=== PATIENT | female | born 1990 ===

== ENCOUNTER 2016-12-08 10:50 | Emergency (ER) | payer MEDICAID, OTHER ==
[2016-12-08 11:08] VITALS: BMI 29.1
[2016-12-08 12:39] LABS: RBC URINE 7 /hpf (0-3); URINE BILIRUBIN NEGATIVE (NEGATIVE); URINE COLOR Yellow (YELLOW); URINE GLUCOSE (UA) NORMAL (Normal); URINE KETONE NEGATIVE (NEGATIVE); URINE LEUKOCYTE ESTERASE TRACE Leu/uL (Negative); URINE PROTEIN NEGATIVE (NEGATIVE); URINE UROBILINOGEN NORMAL mg/dL (0.2-1.0); WBC URINE 5 /hpf (0-5)
[2016-12-08 12:40] LABS: URINE BLOOD TRACE (NEGATIVE)
--- NOTE | 2016-12-08 13:09 | C.PDOC ---
History Of Present Illness 26 yo female come in for evaluation of B/L body sides pain intermittent for past few days. Pt is a localized, non-radiating and worse with movement, standing. Otherwise, pt denies recent illness, fever, chills, neck pain, CP, SOB , dyspnea, diaphoresis, palpitation, abd. pain, V/D, UTI sx. Ambulate to ED for evaluation, not n any apparent distress. Time Seen by Provider: 12/08/16 11:37 Chief Complaint (Nursing): Rib Injury History Per: Patient Onset/Duration Of Symptoms: Intermittent Episodes, Gradual Current Symptoms Are (Timing): Still Present Severity: Moderate Past Medical History Reviewed: Historical Data, Nursing Documentation, Vital Signs Vital Signs: Last Vital Signs Temp 98.1 F 12/08/16 11:08 Pulse 68 12/08/16 11:08 Resp 17 12/08/16 11:08 BP 113/77 12/08/16 11:08 Pulse Ox 99 12/08/16 11:08 - Medical History PMH: Asthma Family History: States: No Known Family Hx - Social History Hx Tobacco Use: No Hx Alcohol Use: Yes Hx Substance Use: No - Immunization History Hx Tetanus Toxoid Vaccination: No Hx Influenza Vaccination: No Hx Pneumococcal Vaccination: No Review Of Systems Except As Marked, All Systems Reviewed And Found Negative. Constitutional: Negative for: Fever, Chills ENT: Negative for: Throat Pain Respiratory: Negative for: Cough, Shortness of Breath, Wheezing Gastrointestinal: Negative for: Nausea, Vomiting, Abdominal Pain, Diarrhea Genitourinary: Negative for: Dysuria, Frequency, Incontinence Musculoskeletal: Positive for: Other (B/L trunk pain). Negative for: Neck Pain , Back Pain Skin: Negative for: Rash Neurological: Negative for: Weakness, Numbness, Altered Mental Status, Headache , Dizziness Physical Exam - Physical Exam Appears: Well, Non-toxic, No Acute Distress Skin: Normal Color, Warm, Dry, No Rash, No Ecchymosis Eye(s): bilateral: Normal Inspection Ear(s): Bilateral: Normal Nose: Normal, No Discharge Oral Mucosa: Moist Tongue: Normal Appearing Lips: Normal Appearing Throat: Normal, No Erythema, No Exudate, No Drooling Neck: Normal, Normal ROM, No Midline Cervical Tenderness, No Paracervical Tenderness, No Step Off Deformity, Supple Chest: Symmetrical, No Deformity, Tenderness (diffuse B/L body sides tenderness. No skin changes, no palpable deformity.) Cardiovascular: Rhythm Regular Respiratory: Normal Breath Sounds, No Stridor, No Wheezing Gastrointestinal/Abdominal: Normal Exam, Soft, No Tenderness, No Distention, No Guarding, No Rebound Back: Normal Inspection, No CVA Tenderness Extremity: Normal ROM, No Pedal Edema Neurological/Psych: Oriented x3, Normal Speech ED Course And Treatment O2 Sat by Pulse Oximetry: 99 Pulse Ox Interpretation: Normal Progress Note: On re-evaluation, pt is afebrile, hemodynamiclay stable. non- toxic. Ambulatory in ED with stable gait. PulsEOx 99% RA. ENT: no acute findings. neck: (-) meningal sign. ABd: benign, (-) localized tenderness. Back: (-) CVA tenderness. Neurologicaly intact. UA results review appears normal. Pt has clinical findings c/w likely muscularskeletal pain . Pt advised. ref. to F/u with PMD in 2-3 days for re-eavl. return if any new hcanges. Disposition Counseled Patient/Family Regarding: Studies Performed, Diagnosis, Need For Followup, Rx Given - Disposition Referrals: Shaik Herrera MD [Staff Provider] - Disposition: HOME/ ROUTINE Disposition Time: 12:30 Condition: STABLE Additional Instructions: Avoid heavy lifting, bending, etc. take pain medication as prescribed Follow up with PMD In 2-3 days for re-evaluation. Return to ED if nay worsening or new changes. Prescriptions: Methocarbamol [Robaxin] 500 mg PO TID #14 tab traMADol [Ultram] 50 mg PO TID #7 tab Instructions: Muscle Strain (ED) Forms: Work/School/Gym Excuse - Clinical Impression Clinical Impression: Muscle strain
[2016-12-08 13:31] VITALS: BP 108/68; PULSE 61; RESP 18; TEMP 97.8; O2SAT 98
== END 2016-12-08 13:32 | disposition home or self-care (01) ==
LOC: C.ER 10:50
DX: T14.8 Other injury of unspecified body region (principal); X58.XXXA Exposure to other specified factors, initial encounter

== ENCOUNTER 2017-03-14 02:11 | Emergency (ER) | payer MEDICAID ==
[2017-03-14 02:12] VITALS: BMI 29.1
[2017-03-14 03:06] LABS: HCG,QUALITATIVE URINE NEGATIVE (NEGATIVE); SQUAMOUS EPITHIAL 16 /hpf (0-5); URINE BACTERIA MANY (<OCC); URINE BILIRUBIN NEGATIVE (NEGATIVE); URINE BLOOD NEGATIVE (NEGATIVE); URINE CLARITY Hazy (Clear); URINE COLOR Yellow (YELLOW); URINE GLUCOSE (UA) NORMAL (Normal); URINE HYALINE CAST >20 /lpf (0-2); URINE LEUKOCYTE ESTERASE 3+ Leu/uL (Negative); URINE NITRATE POSITIVE (NEGATIVE); URINE PROTEIN 1+ mg/dL (NEGATIVE)
--- NOTE | 2017-03-14 03:33 | C.PDOC ---
History Of Present Illness 26 y/o female presents to the ED for evaluation of suprapubic abdominal pain, dysuria and hematuria which has been occurring intermittent episodes for around 2 weeks. Patient denies fever, chills, vomiting, recent travel. Time Seen by Provider: 03/14/17 02:59 Chief Complaint (Nursing): Abdominal Pain History Per: Patient History/Exam Limitations: no limitations Onset/Duration Of Symptoms: Intermittent Episodes (2 weeks ) Current Symptoms Are (Timing): Still Present Location Of Pain/Discomfort: Suprapubic Radiation Of Pain To:: None Quality Of Discomfort: "Pain" Associated Symptoms: Urinary Symptoms (+dysuria and hematuria ). denies: Fever , Chills, Vomiting Additional History Per: Patient Past Medical History Reviewed: Historical Data, Nursing Documentation, Vital Signs Vital Signs: Last Vital Signs Temp 97.8 F 03/14/17 04:20 Pulse 58 L 03/14/17 04:20 Resp 18 03/14/17 04:20 BP 100/64 03/14/17 04:20 Pulse Ox 100 03/21/17 05:35 - Medical History PMH: Asthma Surgical History: No Surg Hx Family History: States: Unknown Family Hx - Social History Hx Tobacco Use: No Hx Alcohol Use: Yes Hx Substance Use: No - Immunization History Hx Tetanus Toxoid Vaccination: No Hx Influenza Vaccination: No Hx Pneumococcal Vaccination: No Review Of Systems Constitutional: Negative for: Fever, Chills Gastrointestinal: Positive for: Abdominal Pain (suprapubic ). Negative for: Vomiting Genitourinary: Positive for: Dysuria, Hematuria Physical Exam - Physical Exam Appears: Non-toxic, No Acute Distress Skin: Normal Color, Warm, Dry Head: Atraumatic, Normacephalic Eye(s): bilateral: Normal Inspection Oral Mucosa: Moist Neck: Supple Chest: Symmetrical Cardiovascular: Rhythm Regular, No Murmur Respiratory: Normal Breath Sounds, No Rales, No Rhonchi, No Wheezing Gastrointestinal/Abdominal: Soft, Tenderness (minimal to mid-suprapubic region on palpation ), No Guarding, No Rebound Back: Normal Inspection, No CVA Tenderness, No Vertebral Tenderness Extremity: Normal ROM, Capillary Refill (less than 2 seconds ) Neurological/Psych: Normal Speech, Normal Cognition Gait: Steady ED Course And Treatment O2 Sat by Pulse Oximetry: 100 (on RA) Pulse Ox Interpretation: Normal Progress Note: UA ordered, results indicated urinary tract infection. Patient received Motrin PO and Macrobid PO. On reassessment, patient is resting comfortably, showing no signs of distress and reports an improvement in her symptoms. Patient is stable for discharge and is advised to follow up with her PMD within 1-2 days for further evaluation. Reassessment Condition: Improved Disposition Counseled Patient/Family Regarding: Diagnosis, Need For Followup, Rx Given - Disposition Disposition: HOME/ ROUTINE Disposition Time: 03:50 Condition: STABLE Additional Instructions: Increase PO fluids Take meds as directed Follow up with PMD Return to ER if fever, vomiting, back pain, severe abdominal pain or Prescriptions: Ibuprofen [Motrin] 600 mg PO Q6H #20 tab Nitrofurantoin Macrocrystals [Macrobid] 1 cap PO BID #13 cap Instructions: Urinary Tract Infection in Women (ED) - Clinical Impression Clinical Impression: Urinary tract infection - PA / MARKET PRESIDENT / Resident Statement MD/DO has reviewed & agrees with the documentation as recorded. - Scribe Statement The provider has reviewed the documentation as recorded by the Scribe (Brittney Corona) All medical record entries made by the Scribe were at my direction and personally dictated by me. I have reviewed the chart and agree that the record accurately reflects my personal performance of the history, physical exam, medical decision making, and the department course for this patient. I have also personally directed, reviewed, and agree with the discharge instructions and disposition.
[2017-03-14 04:21] VITALS: BP 100/64; PULSE 58; RESP 18; TEMP 97.8
[2017-03-21 05:21] VITALS: O2SAT 100
== END 2017-03-14 04:26 | disposition home or self-care (01) ==
LOC: C.ER 02:11
DX: N39.0 Urinary tract infection, site not specified (principal)

== ENCOUNTER 2018-03-05 14:46 | Emergency (ER) | payer MEDICAID ==
[2018-03-05 14:46] VITALS: BMI 29.1
[2018-03-05 14:53] VITALS: RESP 18
[2018-03-05 15:19] LABS: HCG,QUALITATIVE URINE NEGATIVE (NEGATIVE)
[2018-03-05 15:21] LABS: SQUAMOUS EPITHIAL 4 /hpf (0-5); URINE BACTERIA OCC (<OCC); URINE BILIRUBIN NEGATIVE (NEGATIVE); URINE BLOOD 1+ (NEGATIVE); URINE CLARITY Hazy (Clear); URINE COLOR Yellow (YELLOW); URINE GLUCOSE (UA) NORMAL (Normal); URINE LEUKOCYTE ESTERASE 2+ Leu/uL (Negative); URINE PROTEIN 2+ mg/dL (NEGATIVE); URINE UROBILINOGEN NORMAL mg/dL (0.2-1.0)
--- NOTE | 2018-03-05 16:08 | C.PDOC ---
History Of Present Illness 27 year old female presents to the ED for evaluation of suprapubic pain association with vaginal pressure which developed since yesterday. Patient also admits to experiencing some discomfort with urination. Patient admits her menstrual period is usually irregular. Pt denies fever, chills, recent illness, nausea, vomiting, vaginal discharge/bleeding, hematuria, back pain. Ambulate to Ed for evaluation, not in any apparent distress. Time Seen by Provider: 03/05/18 15:00 Chief Complaint (Nursing): Abdominal Pain History Per: Patient History/Exam Limitations: no limitations Onset/Duration Of Symptoms: Hrs Current Symptoms Are (Timing): Still Present Location Of Pain/Discomfort: Suprapubic Radiation Of Pain To:: None Quality Of Discomfort: Pressure, "Pain" Associated Symptoms: Urinary Symptoms (discomfort with urination ). denies: Fever, Chills, Nausea, Vomiting Additional History Per: Patient Abnormal Vaginal Bleeding: No Past Medical History Reviewed: Historical Data, Nursing Documentation, Vital Signs Vital Signs: Last Vital Signs Temp 98.2 F 03/05/18 16:22 Pulse 68 03/05/18 16:22 Resp 18 03/05/18 16:22 BP 127/84 03/05/18 16:22 Pulse Ox 99 03/05/18 16:22 - Medical History PMH: Asthma Surgical History: No Surg Hx Family History: States: Unknown Family Hx - Social History Hx Tobacco Use: No Hx Alcohol Use: Yes Hx Substance Use: No - Immunization History Hx Tetanus Toxoid Vaccination: No Hx Influenza Vaccination: No Hx Pneumococcal Vaccination: No Review Of Systems Constitutional: Negative for: Fever, Chills Gastrointestinal: Positive for: Abdominal Pain (suprapubic ). Negative for: Nausea, Vomiting Genitourinary: Negative for: Vaginal Discharge, Vaginal Bleeding Physical Exam - Physical Exam Appears: Well, Non-toxic, No Acute Distress Skin: Normal Color, Warm, Dry Head: Normacephalic Eye(s): bilateral: PERRL Nose: No Flaring Oral Mucosa: Moist, No Drooling Throat: No Erythema, No Drooling Neck: Trachea Midline, Supple Cardiovascular: Rhythm Regular, No Murmur Respiratory: No Decreased Breath Sounds, No Accessory Muscle Use, No Rales, No Rhonchi, No Stridor, No Wheezing Gastrointestinal/Abdominal: Soft, Tenderness (mild suprapubic), No Distention, No Guarding, No Rebound Back: No CVA Tenderness Pelvic: No Vaginal Bleeding, Vaginal Discharge (scant white disachrges.), No Cervical Motion Tenderness, No Adnexal Tenderness Extremity: Normal ROM, No Swelling Neurological/Psych: Oriented x3, Normal Speech, Normal Cognition ED Course And Treatment - Laboratory Results Urine POC: Negative O2 Sat by Pulse Oximetry: 98 (on RA) Pulse Ox Interpretation: Normal Progress Note: On re-eval, pt is afebrile, hemodynamicaly stable. NOn-toxic. Tolerate Po well in ED. ENT: no acute findings. neck: SUpple. Lungs: CTA B/L , BS equal B/L>. ABd: benign, (-) guarding, (-) rebound. back: (-) CVA tenderness. UA (+) WBC, RBC. Preg (-). Pt has clinical finidngs c/w UTI. Pt advised. ref. to f/u with PMD, BUSINESS ANALYST [employer] In 2-3 days for re-eavl. return if any new changes. Disposition Counseled Patient/Family Regarding: Studies Performed, Diagnosis, Need For Followup, Rx Given - Disposition [facility] [Outside] Disposition: HOME/ ROUTINE Disposition Time: 15:30 Condition: STABLE Additional Instructions: Encurage fluids Take medictaion as prescribed Follow up with BUSINESS ANALYST [employer] in 2-3 days for re-evaluation. return to ED if any worsening or new changes. Prescriptions: Nitrofurantoin Macrocrystals [Macrobid] 1 cap PO BID #14 cap Forms: [facility] (Mosotho), Work Excuse - Clinical Impression Clinical Impression: UTI (urinary tract infection) - PA / WELDING EQUIPMENT REPAIRER / Resident Statement MD/DO has reviewed & agrees with the documentation as recorded. - Scribe Statement The provider has reviewed the documentation as recorded by the Scribe (Brittney Corona) All medical record entries made by the Scribe were at my direction and personally dictated by me. I have reviewed the chart and agree that the record accurately reflects my personal performance of the history, physical exam, medical decision making, and the department course for this patient. I have also personally directed, reviewed, and agree with the discharge instructions and disposition.
[2018-03-05 16:24] VITALS: BP 127/84; PULSE 68; TEMP 98.2
[2018-03-05 16:41] VITALS: O2SAT 98
== END 2018-03-05 16:24 | disposition home or self-care (01) ==
LOC: C.ER 14:46
DX: N39.0 Urinary tract infection, site not specified (principal)

== ENCOUNTER 2018-11-02 13:23 | Emergency (ER) | payer OTHER ==
[2018-11-02 13:42] VITALS: BMI 38.2
[2018-11-02] MEDS ORDERED: Lactated Ringer's 1,000 ML IV SCH (15:00)
[2018-11-02 15:39] LABS: HEMOGLOBIN 11.5 g/dL (11.0-16.0); MEAN CELL VOLUME 90.4 fL (81.0-99.0); MEAN CORPUSCULAR HGB CONC 33.1 g/dL (33.0-37.0); MEAN PLATELET VOLUME 9.8 fL (7.2-11.7); RBC 3.83 Mil/uL (3.80-5.20); RED CELL DISTRIBUTION WIDTH 15.1 % (11.5-14.5); WHITE BLOOD COUNT 8.4 K/uL (4.8-10.8)
[2018-11-02 15:46] LABS: SQUAMOUS EPITHIAL 9 /hpf (0-5); URINE BACTERIA RARE (<OCC); URINE BILIRUBIN NEGATIVE (NEGATIVE); URINE BLOOD NEGATIVE (NEGATIVE); URINE CLARITY Hazy (Clear); URINE COLOR Yellow (YELLOW); URINE GLUCOSE (UA) NORMAL (Normal); URINE LEUKOCYTE ESTERASE 3+ Leu/uL (Negative); URINE PROTEIN 1+ mg/dL (NEGATIVE); URINE UROBILINOGEN NORMAL mg/dL (0.2-1.0)
[2018-11-02 16:02] LABS: ALB/GLOB RATIO 0.9 (1.0-2.1); ALBUMIN 3.5 g/dL (3.5-5.0); ALT/SGPT 22 U/L (9-52); AST/SGOT 65 U/L (14-36); BLOOD UREA NITROGEN 6 mg/dL (7-17); CALCIUM 8.7 mg/dl (8.6-10.4); GFR NON-AFRICAN AMERICAN > 60; LIPASE 65 U/L (23-300)
[2018-11-02 16:07] LABS: BARBITURATES, UR NEGATIVE (NEGATIVE); BENZODIAZEPINES, UR NEGATIVE (NEGATIVE); OPIATES, UR NEGATIVE (NEGATIVE); PHENCYCLIDINE, UR NEGATIVE (NEGATIVE)
[2018-11-02] MEDS ORDERED: Dextrose 5%/Lactated Ringer's 1,000 ML IV SCH (16:15)
[2018-11-02] MEDS ORDERED: guaiFENesin 100 mg/5 ml Syrup UD PO PRN (17:40)
[2018-11-02 18:01] LABS: SQUAMOUS EPITHIAL 1 /hpf (0-5); URINE BACTERIA RARE (<OCC); URINE BILIRUBIN NEGATIVE (NEGATIVE); URINE BLOOD NEGATIVE (NEGATIVE); URINE CLARITY Clear (Clear); URINE COLOR Yellow (YELLOW); URINE GLUCOSE (UA) NORMAL (Normal); URINE LEUKOCYTE ESTERASE NEG Leu/uL (Negative); URINE PROTEIN 1+ mg/dL (NEGATIVE); URINE UROBILINOGEN NORMAL mg/dL (0.2-1.0)
[2018-11-02 19:28] VITALS: TEMP 98.2; O2SAT 97
[2018-11-02] MEDS ORDERED: Albuterol-Ipratrop 3 mg / 0.5 (3 ml) UD IH STA (20:00)
--- NOTE | 2018-11-02 20:00 | C.PDOC ---
History Of Present Illness 28 year old female, 33 weeks , presents to the ED c/o congestion for the past 4 days. Patient was seen and cleared by Dr. Foster OB corporate communications specialist in the OB ED. Patient denies fever, chills, cough, rash, headache, SOB, CP, vaginal bleeding, vaginal discharge, nausea, vomit, diarrhea, abdominal pain. Chief Complaint (Nursing): Cough, Cold, Congestion History Per: Patient History/Exam Limitations: no limitations Onset/Duration Of Symptoms: Days (4) Current Symptoms Are (Timing): Still Present Location Of Pain: Sinus/es Sick Contacts (Context): None Associated Symptoms: Sinus Drainage, Nasal Congestion. denies: Fever, Chills Recent travel outside of the [place]: No Additional History Per: Patient Past Medical History Reviewed: Historical Data, Nursing Documentation, Vital Signs Vital Signs: Last Vital Signs Temp 98.2 F 11/02/18 19:24 Pulse 86 11/02/18 19:24 Resp 18 11/02/18 19:24 BP 163/100 H 11/02/18 19:24 Pulse Ox 97 11/02/18 19:24 - Medical History PMH: Asthma Surgical History: No Surg Hx Family History: States: Unknown Family Hx - Social History Hx Tobacco Use: No Hx Alcohol Use: Yes Hx Substance Use: No - Immunization History Hx Tetanus Toxoid Vaccination: No Hx Influenza Vaccination: No Hx Pneumococcal Vaccination: No Review Of Systems Constitutional: Negative for: Fever, Chills ENT: Positive for: Nose Discharge, Nose Congestion Cardiovascular: Negative for: Chest Pain, Palpitations Respiratory: Negative for: Cough, Shortness of Breath Gastrointestinal: Negative for: Nausea, Vomiting, Abdominal Pain Genitourinary: Negative for: Vaginal Discharge, Vaginal Bleeding Musculoskeletal: Negative for: Back Pain Skin: Negative for: Rash Neurological: Negative for: Headache Physical Exam - Physical Exam Appears: Non-toxic, No Acute Distress Skin: Warm, Dry Head: Normacephalic Eye(s): bilateral: Normal Inspection Nose: Other (congestes) Oral Mucosa: Moist Throat: No Erythema, No Exudate, No Drooling Neck: Supple Chest: Symmetrical Cardiovascular: Rhythm Regular Respiratory: No Rales, Rhonchi (scattered), No Wheezing Gastrointestinal/Abdominal: Soft, No Tenderness, No Guarding, No Rebound, Other (gravid) Back: Normal Inspection Extremity: Bilateral: Atraumatic, Normal Color And Temperature, Normal ROM Neurological/Psych: Oriented x3, Normal Speech, Normal Cognition Gait: Steady ED Course And Treatment - Laboratory Results Result Diagrams: 11/02/18 15:30 11/02/18 16:45 Lab Results: Total Bilirubin 0.5 mg/dL (0.2-1.3) 11/02/18 15:30 AST 65 U/L (14-36) H 11/02/18 15:30 ALT 22 U/L (9-52) 11/02/18 15:30 Alkaline Phosphatase 156 U/L (38-126) H 11/02/18 15:30 Total Protein 7.2 g/dL (6.3-8.3) 11/02/18 15:30 Albumin 3.5 g/dL (3.5-5.0) 11/02/18 15:30 Globulin 3.7 gm/dL (2.2-3.9) 11/02/18 15:30 Albumin/Globulin Ratio 0.9 (1.0-2.1) L 11/02/18 15:30 Lipase 65 U/L (23-300) 11/02/18 15:30 Urine Color Yellow (YELLOW) 11/02/18 17:49 Urine Clarity Clear (Clear) 11/02/18 17:49 Urine pH 6.0 (5.0-8.0) 11/02/18 17:49 Ur Specific [place] 1.009 (1.003-1.030) 11/02/18 17:49 Urine Protein 1+ mg/dL (NEGATIVE) H 11/02/18 17:49 Urine Glucose (UA) Normal mg/dL (Normal) 11/02/18 17:49 Urine Ketones Trace mg/dL (NEGATIVE) 11/02/18 17:49 Urine Blood Negative (NEGATIVE) 11/02/18 17:49 Urine Nitrate Negative (NEGATIVE) 11/02/18 17:49 Urine Bilirubin Negative (NEGATIVE) 11/02/18 17:49 Urine Urobilinogen Normal mg/dL (0.2-1.0) 11/02/18 17:49 Ur Leukocyte Esterase Neg Shefali/uL (Negative) 11/02/18 17:49 Urine WBC (Auto) 1 /hpf (0-5) 11/02/18 17:49 Urine RBC (Auto) < 1 /hpf (0-3) 11/02/18 17:49 Ur Squamous Epith Cells 1 /hpf (0-5) 11/02/18 17:49 Urine Bacteria Rare (<OCC) 11/02/18 17:49 O2 Sat by Pulse Oximetry: 97 (ON RA) Pulse Ox Interpretation: Normal Progress Note: Plan: - Duoneb. Patient seen and cleared by Dr. Foster OB corporate communications specialist prior to my evaluation Reevaluation Time: 20:23 Reassessment Condition: Improved Disposition Counseled Patient/Family Regarding: Studies Performed, Diagnosis, Need For Followup - Disposition Disposition: HOME/ ROUTINE Disposition Time: 20:00 Condition: FAIR Additional Instructions: Please return if symptoms recur Prescriptions: Albuterol/Ipratropium [Duoneb 3 MG/3 Ml-0.5 MG/3 Ml 3 Ml] 1 ea IH QID PRN #50 neb PRN Reason: Wheezing Instructions: Asthma, Adult (DC) Forms: [facility] (Korean) - Clinical Impression Clinical Impression: Asthma - Scribe Statement The provider has reviewed the documentation as recorded by the Scribe Yusef Alas All medical record entries made by the Scribe were at my direction and personally dictated by me. I have reviewed the chart and agree that the record accurately reflects my personal performance of the history, physical exam, medical decision making, and the department course for this patient. I have also personally directed, reviewed, and agree with the discharge instructions and disposition.
[2018-11-02] MEDS ORDERED: Albuterol-Ipratrop 3 mg / 0.5 (3 ml) UD ONE (20:06)
[2018-11-02 20:28] VITALS: BP 148/88; PULSE 92; RESP 16
== END 2018-11-02 20:28 | disposition home or self-care (01) ==
LOC: SUPCPDRO 13:23 → C.ER 13:23 → C.EROB 13:23 → C.ER 20:28
DX: O99.513 Diseases of the respiratory system complicating pregnancy, third trimester (principal); J45.909 Unspecified asthma, uncomplicated; Z3A.33 33 weeks gestation of pregnancy
CPT/HCPCS: 80053; 80324; 80345; 80346; 80349; 80353; 80358; 80361; 81001; 82947; 82948; 83690; 83789; 83992; 85027; 86658; 86695; 86696; 86747; 86762; 86777; 87086; 87804; 96360; 99284; J7120

== ENCOUNTER 2018-11-17 11:30 | Inpatient (IN) | payer OTHER ==
--- NOTE | 2018-11-17 13:04 | OBHP ---
Datetime: 11/17/2018 12:55 IP Adm Impression: , intrauterine ; Ruptured Membranes IP Chief Complaint Other: Gestational Diabetes Gestational Hypertension IP Admit Plan: Admit to unit; Initiate labor induction protocol Pelvic Type - PN: Adequate Extremities - PN: Normal Abdomen - PN: Normal Back - PN: Normal Breast - PN: Not Done Lungs - PN: Normal Heart - PN: Normal Thyroid - PN: Normal Neurologic - PN: Normal HEENT - PN: Normal General - PN: Normal Presentation-Admit: Vertex FHR - Baseline A Provider: 160's Amniotic Fluid Color, Provider: Clear Membranes, Provider: Ruptured Contraction Comments Provider: Ocassional Gestation - Est Wks by US: 36.4 Pool Provider: Positive Nitrazine Provider: Positive EGA AdmitDate IP: 36.4 Vital Signs Provider: Reviewed Vital Signs Provider Details: Midly elevated BP IP Chief Complaint: Suspected ruptured membranes; evaluation; Other NICHD Variability Prov Fetus A: Moderate 6-25bpm NICHD Accel Fetus A IP Provider: 10X10 FHR Category Provider Fetus A: Category I NICHD Decel Fetus A IP Provider: None Dilatation, Provider: 1-2 Effacement, Provider: 80 Station, Provider: -3 Genitourinary Exam: Normal DTRs - PN: Normal
[2018-11-17 13:11] VITALS: BMI 39.9
[2018-11-17] MEDS ORDERED: Lactated Ringer's 1,000 ML IV ONE (13:12)
[2018-11-17] MEDS ORDERED: Penicillin G 5 Million Unit Vial IVPB ONE ×2 (13:12→13:52)
[2018-11-17] MEDS: Lactated Ringer's 1,000 ML IV SCH (13:15)
[2018-11-17 14:09] LABS: BASO % 0.2 % (0.0-2.0); EOS # 0.1 K/uL (0.0-0.7); EOS % 1.3 % (0.0-4.0); HEMOGLOBIN 10.8 g/dL (11.0-16.0); LYMPH # 1.9 K/uL (1.0-4.3); LYMPH % 18.8 % (20.0-40.0); MEAN CORPUSCULAR HEMOGLOBIN 29.8 pg (27.0-31.0); MEAN CORPUSCULAR HGB CONC 33.1 g/dL (33.0-37.0); MEAN PLATELET VOLUME 10.9 fL (7.2-11.7); MONO # 0.9 K/uL (0.0-0.8); MONO % 8.6 % (0.0-10.0); NEUT # 7.3 K/uL (1.8-7.0); NEUT % 71.1 % (50.0-75.0); NRBC % 0.1 % (0.0-2.0); RBC 3.62 Mil/uL (3.80-5.20); RED CELL DISTRIBUTION WIDTH 15.2 % (11.5-14.5); WHITE BLOOD COUNT 10.3 K/uL (4.8-10.8)
[2018-11-17 14:17] LABS: INR 1.1; PROTHROMBIN TIME 11.9 SECONDS (9.7-12.2)
--- NOTE | 2018-11-17 14:23 | OBADHP ---
Datetime: 11/17/2018 12:55 IP Chief Complaint Other: Gestational Diabetes Gestational Hypertension Hx of ASthma +RPR Antenatally Admit Comment, IP Provider: 28 yo female G1 with an IUP at 36.4 weeks per 12 weeks US and presents w ith c/o of gush of clear fluid since 6 AM today without any pains and after it was repeated at about 8 AM, decided to come to the hospital. Midly elevated BP on Admission and Asymptomatic. Admits to lasha quated FM and denies VB, KRAUSE, BV or EP. Hx of elevated BP's throught course and was evaluated for PreE at 34 weeks here and at [facility] and both times she was sent home with precautions. + GDM/Diet controlled. PMHx Asthma and use Albuterol inhaler prn. Last used 2 weeks ago + RPR Antenatally PSHx Denies Meds PNV's. Albuterol inhaler prn Drug allergies: Morphine with rash Social HX: Denies Smoking, ETOH or Street Drug use A/P Near Term / 36.4 weeks SROM with clear fluid Gestational Diabetes/Diet Controlled, FS on admission 115 Gestational HTN/ Asymptomatic and PIH work up ordered Mild Dehdration on admission and IV fluid bolus given Uknown GBS and will give PCN G Prophylactically + RPR Antenattally and treated with PCN 4 million Units IM x 2 doses/ RPR repeated today NST Reactive. Ocassional contractions and will start Pitocin for augmentation of labor Anticipate Vaginal delivery Desires an Epidural when indicated Pelvic Type - PN: Adequate Extremities - PN: Normal Abdomen - PN: Normal Back - PN: Normal Breast - PN: Not Done Lungs - PN: Normal Heart - PN: Normal Thyroid - PN: Normal Neurologic - PN: Normal HEENT - PN: Normal General - PN: Normal Presentation-Admit: Vertex FHR - Baseline A Provider: 160's Amniotic Fluid Color, Provider: Clear Membranes, Provider: Ruptured Contraction Comments Provider: Ocassional Comments, ACOG Physical Exam: DTR's +2/4 bilaterally Gestation - Est Wks by US: 36.4 Pool Provider: Positive Nitrazine Provider: Positive IP Hx Assessment: The History has been Reviewed and is Current Vital Signs Provider: Reviewed Vital Signs Provider Details: Midly elevated BP IP Chief Complaint: Suspected ruptured membranes; evaluation; Other NICHD Variability Prov Fetus A: Moderate 6-25bpm NICHD Accel Fetus A IP Provider: 10X10 FHR Category Provider Fetus A: Category I NICHD Decel Fetus A IP Provider: None Dilatation, Provider: 1-2 Effacement, Provider: 80 Station, Provider: -3 Genitourinary Exam: Normal DTRs - PN: Abnormal EGA AdmitDate IP: 36.4 IP Adm Impression: , intrauterine ; Ruptured Membranes IP Admit Plan: Admit to unit; Initiate labor augmentation protocol
[2018-11-17 14:28] LABS: ALB/GLOB RATIO 0.9 (1.0-2.1); ALBUMIN 3.2 g/dL (3.5-5.0); ALT/SGPT 15 U/L (9-52); AST/SGOT 37 U/L (14-36); BLOOD UREA NITROGEN 11 mg/dL (7-17); CALCIUM 8.4 mg/dl (8.6-10.4); GFR NON-AFRICAN AMERICAN > 60; URIC ACID 5.3 mg/dL (2.2-7.5)
[2018-11-17] MEDS ORDERED: Oxytocin 30 UNIT in NS 500 ml 30 UNITS/500 ML BAG IV SCH (15:15)
[2018-11-17 15:25] LABS: SQUAMOUS EPITHIAL < 1 /hpf (0-5); URINE BILIRUBIN NEGATIVE (NEGATIVE); URINE BLOOD NEGATIVE (NEGATIVE); URINE CLARITY Clear (Clear); URINE COLOR Yellow (YELLOW); URINE GLUCOSE (UA) NORMAL (Normal); URINE LEUKOCYTE ESTERASE NEG Leu/uL (Negative); URINE PROTEIN 2+ mg/dL (NEGATIVE)
[2018-11-17] MEDS ORDERED: Magnesium Sulfate 2 GM in Dextrose 5% In Water 250 ML IVPB ONE (16:20)
[2018-11-17] MEDS ORDERED: Magnesium Sulfate 6 GM in Dextrose 5% In Water 250 ML IVPB ONE (16:23)
[2018-11-17] MEDS ORDERED: Magnesium Sulfate 20 gm 20 GM/500 ML BAG IV ONE (16:41)
[2018-11-17] MEDS ORDERED: Lactated Ringer's 1,000 ML IV SCH (16:45)
[2018-11-17 17:12] LABS: RAPID PLASMA REAGIN REACTIVE (NONREACTIVE)
--- NOTE | 2018-11-17 18:25 | OBPN ---
Datetime: 11/17/2018 15:40 IP Progress Impression Other: Gestational Diabetes IP Progress Impression: Reassuring heart rate; Reactive non-stress test; Rupture of membranes; Gest. HTN/PreEclampsia/Eclampsia IP Informed Consent Obtain: Vaginal Delivery IP Progress Plan: Continue present management; Augmentation; Anesthesia consult; Antibiotic therapy; Anticipate Vaginal Delivery Membranes, Provider: Ruptured Contraction Comments Provider: Irregular FHR - Baseline A Provider: 130 Gestation - Est Wks by US: 36.4 Presentation-Admit: Vertex IP Progress Note Comment: Pt labs resulted and reviewed and OK for the most part UA with 2+ proteinuria and Protein/Creat ration 3.1 3+ facial and abdominal edema noted with DTR's +3/4 Discussed with patient and her mother, present in her room the recommendation to start Magnesium S ulfate secondary to Preeclampsia and to prevent seizures. All of their questions were answered to their full satisfaction and orders were placed RPR positive and FTA ABs were ordered Will consult Infectious diseases at this time Pitocin was started for Augmentation of labor as well a PenK for unknown GBS Hope for a vaginal delivery Vital Signs Provider: Reviewed Vital Signs Provider Details: Diastolic BP's elevated to high 80's NICHD Accel Fetus A IP Provider: 10X10 FHR Category Provider Fetus A: Category I NICHD Variability Prov Fetus A: Moderate 6-25bpm NICHD Decel Fetus A IP Provider: None (Annotations: Data stored by CPN on behalf of user) Datetime: 11/17/2018 12:55 Pool Provider: Positive Nitrazine Provider: Positive Amniotic Fluid Color, Provider: Clear Dilatation, Provider: 1-2 Effacement, Provider: 80 Station, Provider: -3
[2018-11-17] MEDS ORDERED: Magnesium Sulfate 20 gm 20,000 MG/500 ML BAG IV ONE (18:31)
[2018-11-17] MEDS ORDERED: Fentanyl/Bupivacaine HCl 250 ML EPI ONE (19:05)
--- NOTE | 2018-11-17 20:03 | OBPN ---
Datetime: 11/17/2018 19:38 IP Progress Impression Other: Gestational Diabetes IP Progress Impression: Reactive non-stress test; Rupture of membranes; Gest. HTN/PreEclampsia/Eclam psia IP Informed Consent Obtain: Vaginal Delivery IP Procedures: Sterile Vag Exam; Epidural Placement IP Progress Plan: Continue present management; Augmentation; Antibiotic therapy Membranes, Provider: Ruptured Contraction Comments Provider: Still irregular FHR - Baseline A Provider: 140 Gestation - Est Wks by US: 36.4 Presentation-Admit: Vertex IP Progress Note Comment: Pt seen and examined with minimal progress in dilatation and effacement SHRUTI Valles was consulted and discussed case with her over the phone since she unable to come. She suggested to increase her PCN VK to 4 instead of 2.5 Q [address] Bashir aware of patient's condition and weirobbin request her presence at delivery FTA Ab's were sent out and pending Closer review of her PNC records revealed + RPR at 10 weeks and treated x 3 with Bhavin Pcn 2.4 mil lion units IM x 3 weekly doses at 11/12 weeks. Repeated RPR at 20 weeks and at 33+ weeks were Negativ e FHT's reassuring UC's still irregular with Pitocin at 6 mU/min and will continue increasing it BP's increasing at times and will probable start her on Labetolol po Pt states that her pain with contractions is 7/10 and requested an Epidural and Anesthesia aware a nd in progress Vital Signs Provider: Reviewed NICHD Accel Fetus A IP Provider: 10X10 FHR Category Provider Fetus A: Category I NICHD Variability Prov Fetus A: Moderate 6-25bpm Dilatation, Provider: 2+ Effacement, Provider: 90 Station, Provider: -3 NICHD Decel Fetus A IP Provider: None
[2018-11-17] MEDS: WATER IV SCH (22:02)
[2018-11-17] MEDS: DEXTROSE IV SCH (22:02)
[2018-11-17] MEDS: PENICILLIN POTASSIUM MU IV SCH (22:02)
[2018-11-18] MEDS ORDERED: Bupivacaine HCl 0.5% PF (10 ml) Inj ONE ×4 (00:01→10:23)
[2018-11-18] MEDS ORDERED: Lidocaine 2% MPF (5 ml) Inj ONE ×5 (00:02→11:49)
[2018-11-18] MEDS ORDERED: Fentanyl/Bupivacaine HCl 250 ML EPI ONE (00:30)
[2018-11-18] MEDS: PENICILLIN POTASSIUM MU IV SCH ×4 (01:40→13:30)
[2018-11-18] MEDS: WATER IV SCH ×4 (01:40→13:30)
[2018-11-18] MEDS: DEXTROSE IV SCH ×4 (01:40→13:30)
[2018-11-18] MEDS ORDERED: Magnesium Sulfate 20 gm 20,000 MG/500 ML BAG IV ONE ×2 (05:56→16:09)
[2018-11-18] MEDS: Lactated Ringer's 1,000 ML IV SCH (06:04)
[2018-11-18] MEDS ORDERED: NS IV ONE (07:41)
[2018-11-18] MEDS ORDERED: OXYTOCIN IV ONE (07:41)
--- NOTE | 2018-11-18 12:48 | OBPN ---
Datetime: 11/18/2018 10:20 Membranes, Provider: Ruptured Contraction Comments Provider: 2-3 FHR - Baseline A Provider: 140 Gestation - Est Wks by US: 36.5 Presentation-Admit: Vertex IP Progress Note Comment: Pt seen and examined Prolonged SROM, more than 30 hours C/O's of pain with contractions and Anesthesia had seen her many time for pain assessment Tracing reassuring BP's up to 140-150's/90's. Denies KRAUSE, BV or EP and Magnesium Sulfate running with last level 5.3. Last FS BS 91 Afebrile and no abdominal tenderness Cx's improved after changing her Pitocin bag Continue Present management and Hope for a vaginal delivery NICHD Variability Prov Fetus A: Moderate 6-25bpm NICHD Decel Fetus A IP Provider: None Datetime: 11/18/2018 07:30 IP Progress Impression Other: Gestational Diabetes IP Progress Impression: Reactive non-stress test; Rupture of membranes; Gest. HTN/PreEclampsia/Eclam psia IP Informed Consent Obtain: Vaginal Delivery IP Procedures: Sterile Vag Exam IP Progress Plan: Continue present management; Augmentation NICHD Accel Fetus A IP Provider: 100 Dilatation, Provider: 5 Effacement, Provider: 100 Station, Provider: -2
--- NOTE | 2018-11-18 13:03 | OBPN ---
Datetime: 11/18/2018 07:30 Membranes, Provider: Ruptured Contraction Comments Provider: 2-4 FHR - Baseline A Provider: 140 Gestation - Est Wks by US: 36.5 Presentation-Admit: Vertex IP Progress Note Comment: Pt seen and examined. No c/o's at this time Denies KRAUSE, BV or EP and admits to adequate FM BP's elevated on and off Magnesium Sulfate in place and Therapeutic levels verified Received several doses of Pen G [address] Means's recomendation to cover for + RPR and for unknown GBS Epidural working well and had required few boluses but patient comfortable SVE 5/100/-2 with large caput Pitocin at 20 mu/min with irregular contractions IUPC not working well per Nursing, and removed Will change the Pitocin bag and re-start at 10 and increase per protocol FS BS Q 6 hrs and WNL SROM for about 21 hours, Afebrile and No S_S of [place] Will continue with Augmentation of Labor and Hope for a vaginal delivery Discussed with patient the possibility of a C/S Will reexamined again in a couple of hours and decide then Pt verbalized understanding and all of her questions were answered to her full satisfaction. Stable and Satisfactory condition Rested over nite FHR Category Provider Fetus A: Category I
[2018-11-18] MEDS ORDERED: Oxytocin 30 UNIT in NS 500 ml 30 UNITS/500 ML BAG IV ONE (14:57)
[2018-11-18] MEDS ORDERED: Penicillin G Benzathine 2.4 Mill Unit/4 ml Syr IM ONE (15:17)
[2018-11-18] MEDS ORDERED: Sodium Citrate/Citric Acid 15 ml Sol PO ONE (15:19)
[2018-11-18] MEDS ORDERED: cefOXitin IV 2 gm in Dextrose 2 GM/50 ML BAG IVPB ONE ×2 (15:19→22:42)
[2018-11-18] MEDS ORDERED: Sodium Citrate/Citric Acid 15 ml Sol ONE (15:36)
[2018-11-18] MEDS ORDERED: Oxytocin 10 Units/ml Inj ONE (16:36)
--- NOTE | 2018-11-18 18:20 | CP.PCM.CON ---
History of Present Illness - History of Present Illness History of Present Illness: dictated Past Patient History - Infectious Disease Hx of Infectious Diseases: None - Past Social History Smoking Status: Never Smoked - PULMONARY Hx Asthma: Yes - PSYCHIATRIC Hx Substance Use: No - SURGICAL HISTORY Hx Surgeries: No - ANESTHESIA Hx Anesthesia: No Meds Allergies/Adverse Reactions: Allergies Allergy/AdvReac Type Severity Reaction Status Date / Time morphine Allergy Severe RASH Verified 11/02/18 19:22 - Medications Medications: Current Medications Lactated Ringer's (Lactated Ringer's) 1,000 mls @ 125 mls/hr IV .Q8H [facility] Last Admin: 11/18/18 06:04 Dose: 125 mls/hr Oxytocin (Pitocin) 30 units in 500 mls @ 2 mls/hr IV .Q24H [facility]; Protocol Last Admin: 11/17/18 15:35 Dose: 2 mls/hr Lactated Ringer's (Lactated Ringer's) 1,000 mls @ 75 mls/hr IV .[id number] DENISE Penicillin G Potassium 4 mu/ (Dextrose) 50 mls @ 100 mls/hr IV Q4H [facility]; Protocol Last Admin: 11/18/18 13:30 Dose: 100 mls/hr Labetalol HCl (Trandate) 100 mg PO BID [facility] Results - Vital Signs Recent Vital Signs: Last Vital Signs Temp 98.1 F 11/17/18 13:30 Pulse Resp BP Pulse Ox - Labs Result Diagrams: 11/17/18 14:01 11/17/18 14:01 Labs: Laboratory Results - last 24 hr 11/17/18 11/17/18 11/17/18 14:01 18:30 22:10 Sodium 137 Potassium 3.6 Chloride 111 H Carbon Dioxide 22 Anion Gap 8 L BUN 11 Creatinine 0.7 Est GFR ( Amer) > 60 Est GFR (Non-Af Amer) > 60 POC Glucose (mg/dL) 91 Random Glucose 100 D Uric Acid 5.3 Calcium 8.4 L Magnesium 1.6 4.1 H Total Bilirubin 0.6 AST 37 H D ALT 15 Alkaline Phosphatase 181 H Lactate Dehydrogenase 482 Total Protein 6.6 Albumin 3.2 L Globulin 3.4 Albumin/Globulin Ratio 0.9 L 11/17/18 11/18/18 11/18/18 23:48 05:33 05:50 Sodium Potassium Chloride Carbon Dioxide Anion Gap BUN Creatinine Est GFR ( Amer) Est GFR (Non-Af Amer) POC Glucose (mg/dL) 79 84 Random Glucose Uric Acid Calcium Magnesium 5.3 H* D Total Bilirubin AST ALT Alkaline Phosphatase Lactate Dehydrogenase Total Protein Albumin Globulin Albumin/Globulin Ratio 11/18/18 11/18/18 10:59 11:05 Sodium Potassium Chloride Carbon Dioxide Anion Gap BUN Creatinine Est GFR ( Amer) Est GFR (Non-Af Amer) POC Glucose (mg/dL) 91 Random Glucose Uric Acid Calcium Magnesium 5.8 H* Total Bilirubin AST ALT Alkaline Phosphatase Lactate Dehydrogenase Total Protein Albumin Globulin Albumin/Globulin Ratio
[2018-11-18] MEDS ORDERED: Oxycodone/Acetaminophen 5/325 mg Tab PO PRN (18:41)
[2018-11-18] MEDS: Magnesium Sulfate 20 gm 20 GM/500 ML BAG IV SCH (19:00)
--- NOTE | 2018-11-18 19:33 | OBPN ---
Datetime: 11/18/2018 15:25 IP Progress Impression: Arrest of dilatation/descent; Reassuring heart rate; Gest. HTN/PreEcla mpsia/Eclampsia IP Informed Consent Obtain: Section Delivery IP Procedures: Sterile Vag Exam IP Progress Plan: Deliver- Section Membranes, Provider: Ruptured FHR - Baseline A Provider: 130 Vital Signs Provider: Reviewed NICHD Accel Fetus A IP Provider: 10X10 FHR Category Provider Fetus A: Category I NICHD Variability Prov Fetus A: Moderate 6-25bpm Dilatation, Provider: 9 Effacement, Provider: 100 Station, Provider: 0 NICHD Decel Fetus A IP Provider: None Datetime: 11/18/2018 12:52 Contraction Comments Provider: 2-3 min IP Progress Note Comment: Patient seen and examined at beside. Patient reports having some abdominal discomfort. Offers no other complaints at this time Vital signs: BP 144/91 HR 104 SVE: 8/100/0 A/P: 28 year old in active labor, with gestational diabetes and pre-eclampsia on magnesium juárez lfate -Patient was started on Labetalol 100mg PO BID for elevated BPs -Afebrile, Fingerstick BS's WNL -Tracing reassuring -Will continue with Pitocin augmentation of labor -GBS unknown with positive RPR: Continue penicillin G Plan discussed with Dr Ken Garcia DO PGY-2 Pt seen and examined with Dr. Garcia and all of her findings and POC were reviewed and agreed upon
[2018-11-18] MEDS ORDERED: Acetaminophen IV 1,000 MG in Premixed IV 1 EA IV ONE (19:54)
--- NOTE | 2018-11-18 19:57 | OBPN ---
Datetime: 11/18/2018 15:25 IP Progress Note Comment: Patient seen and examined at bedside. Patient complaining of abdominal debby n despite having several boluses of pain meds through the epidural SVE: 9/100/0 and unchanged for the past 2 hours A/P: 28 year old at 36w5d with pre-eclampsia on magnesium, positive RPR on penicillin and ges tational diabetes now with arrest of dilation/arrest of descent, prolonged rupture of membranes -Category I tracing -ID consulted for positive RPR, patient to recieve 2.4MMU of Bicillin IM x [address] Means orders -Plan for c section for arrest of dilation and descent -Procedure, risks and possible complictions fully discussed with patient, all of her questions wer e answered to her full satisfaction, she requested to proceed and signed the consent -Pitocin discontinued -assistant project manager and anesthesia notified and will proceed as soon as ready -Bictra and pepcid ordered Plan discussed with Dr Ken Garcia DO PGY-2 Pt seen and examined with Dr. Garcia and all of her findings and POC were discussed with her and vilma harden upon
[2018-11-18 20:01] LABS: BASO # 0.1 K/uL (0.0-0.2); BASO % 0.3 % (0.0-2.0); EOS % 0.1 % (0.0-4.0); HEMOGLOBIN 10.8 g/dL (11.0-16.0); LYMPH # 1.3 K/uL (1.0-4.3); LYMPH % 6.8 % (20.0-40.0); MEAN CELL VOLUME 91.5 fL (81.0-99.0); MEAN CORPUSCULAR HEMOGLOBIN 28.6 pg (27.0-31.0); MEAN CORPUSCULAR HGB CONC 31.2 g/dL (33.0-37.0); MEAN PLATELET VOLUME 11.2 fL (7.2-11.7); MONO # 0.9 K/uL (0.0-0.8); MONO % 4.5 % (0.0-10.0); NEUT # 16.7 K/uL (1.8-7.0); NEUT % 88.3 % (50.0-75.0); PLATELET COUNT 198 K/uL (130-400); RBC 3.77 Mil/uL (3.80-5.20); RED CELL DISTRIBUTION WIDTH 15.3 % (11.5-14.5)
[2018-11-18 20:36] LABS: ANISOCYTOSIS SLIGHT; BANDS 4 % (0-2); HYPOCHROMIC SLIGHT; LYMPHOCYTE 7 % (20-40); MONOCYTE 6 % (0-10); NEUTROPHIL 83 % (50-75); PLATELET ESTIMATE NORMAL (NORMAL); POLYCHROMIC SLIGHT; TOTAL CELLS COUNTED 100
[2018-11-18 21:28] LABS: SQUAMOUS EPITHIAL < 1 /hpf (0-5); URINE BILIRUBIN NEGATIVE (NEGATIVE); URINE BLOOD 3+ (NEGATIVE); URINE CLARITY Clear (Clear); URINE COLOR Yellow (YELLOW); URINE GLUCOSE (UA) NORMAL (Normal); URINE LEUKOCYTE ESTERASE NEG Leu/uL (Negative); URINE PROTEIN NEGATIVE (NEGATIVE); URINE UROBILINOGEN NORMAL mg/dL (0.2-1.0)
[2018-11-18] MEDS: cefOXitin IV 2 gm in Dextrose 2 GM/50 ML BAG IVPB SCH (22:45)
[2018-11-19] MEDS ORDERED: Magnesium Sulfate 20 gm 20,000 MG/500 ML BAG IV ONE ×2 (03:27→14:16)
--- NOTE | 2018-11-19 04:11 | CON ---
DATE: 11/18/2018 INFECTIOUS DISEASE CONSULT REQUESTED BY: Kay Rogers DO HISTORY OF PRESENT ILLNESS: This patient is a 28-year-old female. She is 1 and she is 36 weeks plus. She is came in with gestational hypertension, diabetes, asthma. I am asked to evaluate her for her positive RPR. I was told that her RPR was positive according to the records which was in May. She received three doses of benzathine penicillin 2.4 million units starting from 05/23. It seems from 05/23 but her records show that she was negative. Later in 07/2018 when they tested her and again she tested positive at this time and her RPR is 1:4. She is having contractions and it is possible that they might be taking her to the OR today, and yesterday, she was also getting penicillin for possible GBS, as the reports were not ready, so she was on 2 million units. I told them to give 4 million every 4 hours for now and she was already on penicillin and she was going to deliver, as the baby was still inside and I spoke to the patient while she was having contractions and I put the question to her that if this is persistent or syphilis or this is recurrent syphilis giving entertaining her answers but she just ignored it and I am not sure what the situation is at this time but she needs retreatment. PAST MEDICAL HISTORY: Significant for asthma, RPR. She has gestational diabetes, diet control; gestational hypertension. She is preeclamptic. She is getting her treatments for that. This is her first and there are no other symptoms at this time. She came in yesterday with clear liquid leaking and so they initiated labor induction protocol which is . SOCIAL HISTORY: Negative for smoking or drinking or street drugs. MEDICATIONS: She is on labetalol, Ringer's lactate she is getting. She is on oxytocin, Pitocin and she is on penicillin 4 million units every 4 hours, which we should continue and probably the baby should receive penicillin and testing for RPR also. PHYSICAL EXAMINATION: VITAL SIGNS: Her final temperature was 98. See the [employer] note. I was not able to get vitals from the screens here. GENERAL: She is afebrile. HEENT: Head is atraumatic, normocephalic. They were monitoring heart rate. NECK: Supple. LUNGS: Clear. HEART: S1, S2, is regular. ABDOMEN: Soft with contractions and she is going to deliver. They were trying to give her a chance for vaginal delivery. EXTREMITIES: Have mild edema present. LABORATORY DATA: White count is 10.3, hemoglobin 10.8, hematocrit 32.6, platelet count is 207. This is from yesterday. Potassium is 3.6, creatinine is 0.7 and magnesium was given and is 5.8 now. It was 1.6 before. She is being treating for preeclampsia and protein is 2+, urobilinogen is 2+, otherwise no wbc is present. RPR is 1:4 and HIV antibodies are negative. PLAN: So at this time, since she had syphilis positive and we do not know the previous titers, it could be persistence of syphilis or it could be recurrence, and at this time we will initiate again and benzathine penicillin L-A 2.4 million units, weekly to be given starting today for next two weeks and also the patient's baby needs to be monitored for and given treatment for syphilis as needed. She is preeclampsia and they are monitoring her per [employer] protocol. Joaquina Means MD
[2018-11-19] MEDS: Magnesium Sulfate 20 gm 20 GM/500 ML BAG IV SCH (05:00)
[2018-11-19] MEDS: cefOXitin IV 2 gm in Dextrose 2 GM/50 ML BAG IVPB SCH (06:00)
[2018-11-19] MEDS ORDERED: cefOXitin IV 2 gm in Dextrose 2 GM/50 ML BAG IVPB ONE ×2 (06:49→14:16)
[2018-11-19] MEDS: Simethicone 80 mg Chewtab PO SCH ×4 (07:06→23:49)
[2018-11-19 07:55] LABS: BASO # 0.1 K/uL (0.0-0.2); BASO % 0.3 % (0.0-2.0); LYMPH # 2.5 K/uL (1.0-4.3); LYMPH % 12.8 % (20.0-40.0); MEAN CELL VOLUME 90.4 fL (81.0-99.0); MEAN CORPUSCULAR HEMOGLOBIN 28.6 pg (27.0-31.0); MEAN CORPUSCULAR HGB CONC 31.6 g/dL (33.0-37.0); MEAN PLATELET VOLUME 10.6 fL (7.2-11.7); MONO # 1.5 K/uL (0.0-0.8); MONO % 7.8 % (0.0-10.0); NEUT # 15.4 K/uL (1.8-7.0); NEUT % 79.1 % (50.0-75.0); RBC 3.14 Mil/uL (3.80-5.20); RED CELL DISTRIBUTION WIDTH 15.4 % (11.5-14.5); WHITE BLOOD COUNT 19.5 K/uL (4.8-10.8)
[2018-11-19] MEDS: Prenatal Multivit/Folic Acid/Iron Tab PO SCH (10:52)
[2018-11-19 14:23] LABS: ALB/GLOB RATIO 0.8 (1.0-2.1); ALBUMIN 2.4 g/dL (3.5-5.0); ALT/SGPT 14 U/L (9-52); AST/SGOT 29 U/L (14-36); BLOOD UREA NITROGEN 11 mg/dL (7-17); CALCIUM 6.9 mg/dl (8.6-10.4); GFR NON-AFRICAN AMERICAN > 60
[2018-11-19] MEDS ORDERED: Lactated Ringer's 1,000 ML IV SCH (15:02)
[2018-11-19] MEDS ORDERED: Bisacodyl 5mg EC Tab PO ONE (18:41)
[2018-11-20 08:46] LABS: BASO % 0.1 % (0.0-2.0); EOS # 0.2 K/uL (0.0-0.7); EOS % 1.2 % (0.0-4.0); HEMOGLOBIN 8.5 g/dL (11.0-16.0); LYMPH # 2.1 K/uL (1.0-4.3); LYMPH % 11.3 % (20.0-40.0); MEAN CELL VOLUME 91.8 fL (81.0-99.0); MEAN CORPUSCULAR HEMOGLOBIN 29.1 pg (27.0-31.0); MEAN CORPUSCULAR HGB CONC 31.8 g/dL (33.0-37.0); MEAN PLATELET VOLUME 10.1 fL (7.2-11.7); MONO # 1.6 K/uL (0.0-0.8); MONO % 8.7 % (0.0-10.0); NEUT # 14.3 K/uL (1.8-7.0); NEUT % 78.7 % (50.0-75.0); RBC 2.92 Mil/uL (3.80-5.20); RED CELL DISTRIBUTION WIDTH 15.9 % (11.5-14.5); WHITE BLOOD COUNT 18.2 K/uL (4.8-10.8)
[2018-11-20] MEDS: Prenatal Multivit/Folic Acid/Iron Tab PO SCH (10:45)
[2018-11-20] MEDS: Simethicone 80 mg Chewtab PO SCH ×4 (10:45→21:48)
[2018-11-20 12:53] LABS: ALB/GLOB RATIO 0.9 (1.0-2.1); ALBUMIN 2.8 g/dL (3.5-5.0); ALT/SGPT 11 U/L (9-52); AST/SGOT 36 U/L (14-36); BLOOD UREA NITROGEN 14 mg/dL (7-17); CALCIUM 7.2 mg/dl (8.6-10.4); GFR NON-AFRICAN AMERICAN > 60
[2018-11-20 16:23] VITALS: O2SAT 97
--- NOTE | 2018-11-20 23:53 | OBPPN ---
Datetime: 11/20/2018 09:35 PP Pain Prov: Within normal limits PP Nausea Prov: Denies PP Flatus Prov: No PP BM Prov: No PP Breasts Prov: Normal PP Heart Prov: Normal PP Lungs Prov: Normal PP Abdomen/Uterus Prov: Normal PP Lochia Prov: Normal PP Vulva/Perineum Prov: Not Done PP CVA Tenderness Prov: Normal PP Extremities Prov: Normal PP C/S Incision Prov: Normal PP Progress Prov: Normal PP Comments Phys Exam Prov: Abdomen: (+) ABS. Spft. Obese. Fundus firm, mobile, mild and appropriat dalia tender , 1 FB above umbilicus. Incision with alisia - clean, dryand intact. Minimal lochia rubra Extremities: no calf tendenress, edema All other systems reviewed and are negative PP Progress Note Prov: Patient receivedin bed, room 460in good spirits. Atetmpting to breastfeed " n thing is coming yet". Deneis headaches, dizziness, blurred vision, nausea or vomiting. Ambulating and voiding without difficulty. P.E.: as above. Obese in NAD. Awake, alert, oriented to time persona nd place. Pleasant and brayan ative - POD#1 H/H 9.0/28.4. RPR on admission 1:4. Rh (+) Assessment: 28 y.o. , S/P primary LTCS at 36 weeks, failed IOL with arrest of descent, pre -eclampsia, A1 GDM, and incidental finding of elevated RPR titre as above. Patient tdenies any sexual encounter since impregnation - FOB is not involved. Denies being in a sexual relatinship with anyone else. Infectious Disease note with recommended treatment read and appreciated. Patient has received first of 3 doses of bicillin (to be given once weekly). Patient's BP wnl; no need for antihypertensiv es at this time. Patient encouraged to: 1) increase p.o. intake of fluids, and to 2) ambulate. Adalgisa ent is anemic: currently asymptomatic and hemodynamically stable. Plan: 1) continue present post op management Vital Signs Provider PP: Reviewed; Within Normal Limits
[2018-11-21 09:07] VITALS: RESP 18
[2018-11-21] MEDS: Prenatal Multivit/Folic Acid/Iron Tab PO SCH (09:28)
[2018-11-21] MEDS: Simethicone 80 mg Chewtab PO SCH ×3 (09:28→17:36)
--- NOTE | 2018-11-21 09:47 | OBPPN ---
Datetime: 11/21/2018 08:08 PP Pain Prov: Within normal limits PP Nausea Prov: Denies PP Flatus Prov: No PP BM Prov: No PP C/S Incision Prov: Normal PP Progress Prov: Normal PP Impression Prov: Normal progression PP Plan Prov: Continue present management PP Progress Note Prov: Patient seen and examined at bedside. Per nursing no acute events overnight. Patient reports having pain overnight that improved with Tramadol. She is ambulating and tolerating d iet. Lochia is mild. Denies passing flatus or having a bowel movement. Breast and bottle feeding. She denies headaches, dizziness, cp, palpitations, sob, urinary symptoms. VS: 127/80 90 97.3 Gen: AAOx3 CV: RRR Lungs: CTA B/L Abd: Soft, fundus firm at umbilicus, incision c/d/i with alisia Ext: +1 pitting edema bilaterally Labs: 10.3>10.8/32.6<207 18.2>8.5/36.8<162 O positive Rubella immune A/P: 28 year old at 36w5d s/p PLTCD 2/2 arrest of descent/dilation, history of pre-eclamps ia s/p magnesium sulfate, RPR positive -Stable, afebrile -Pain control: Tramadol and Motrin -Encourage ambulation, hydration, ISS use -BPs are controlled -ID on consult for +RPR, s/p Bicillin 2.4 MMU IM x 1 on 11/18/18 Vital Signs Provider PP: Reviewed
[2018-11-21] MEDS ORDERED: Influenza Vaccine 60 mcg/0.5 mL SYR (4YR UP) IM ONE (18:11)
[2018-11-21 19:41] VITALS: BP 109/68; PULSE 98; TEMP 99.1
== END 2018-11-21 20:35 | disposition home or self-care (01) | DRG 650 ==
LOC: C.EROB 11:30 → C.4D 12:38 → C.4M 11-19 20:56
PROVIDERS: ADMIT Obstetrics & Gynecology; ATTEND Obstetrics & Gynecology
PROC: 10D00Z1 Extraction of Products of Conception, Low, Open Approach (ICD-10-PCS; principal; 2018-11-18)
DX: O42.913 Preterm premature rupture of membranes, unspecified as to length of time between rupture and onset of labor, third trimester (principal); O99.02 Anemia complicating childbirth; A53.0 Latent syphilis, unspecified as early or late; O62.0 Primary inadequate contractions; O98.12 Syphilis complicating childbirth; O62.1 Secondary uterine inertia; O99.214 Obesity complicating childbirth; O61.9 Failed induction of labor, unspecified; O24.420 Gestational diabetes mellitus in childbirth, diet controlled; O14.94 Unspecified pre-eclampsia, complicating childbirth; E66.9 Obesity, unspecified; Z3A.36 36 weeks gestation of pregnancy; Z37.0 Single live birth; Z68.38 Body mass index [BMI] 38.0-38.9, adult

== ENCOUNTER 2018-11-26 12:52 | Emergency (ER) | payer OTHER ==
[2018-11-26 12:52] VITALS: BMI 39.9
--- NOTE | 2018-11-26 14:16 | C.PDOC ---
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 Patient states that she did a split and felt a pull on the lower part of her abdomen where her scar is. Patient also reports right lower dental pain over 2-3 days, which has become worse today. She notes that she was recently discharged from the hospital for preeclampsia. Denies nausea, vomiting, swelling, headache, chest pain, SOB, abdominal pain. Time Seen by Provider: 11/26/18 13:26 Chief Complaint (Nursing): Dental Pain History Per: Patient History/Exam Limitations: no limitations Onset/Duration Of Symptoms: Hrs Current Symptoms Are (Timing): Still Present Quality: Positive for: "Pain" (dental) Recent travel outside of the [place]: No Past Medical History Reviewed: Historical Data, Nursing Documentation, Vital Signs Vital Signs: Last Vital Signs Temp 99.4 F 11/26/18 13:16 Pulse 114 H 11/26/18 13:16 Resp 14 11/26/18 13:16 BP 160/96 H 11/26/18 13:16 Pulse Ox 96 11/26/18 13:16 - Medical History PMH: Asthma ("seasonal"), HTN (During ) Denies: Chronic Kidney Disease Surgical History: No Surg Hx - [facility] Procedures EXTRACTION OF POC, LOW CERVICAL, OPEN APPROACH (11/17/18) Family History: States: Unknown Family Hx - Social History Hx Tobacco Use: No Hx Alcohol Use: No Hx Substance Use: No - Immunization History Hx Tetanus Toxoid Vaccination: No Hx Influenza Vaccination: No Hx Pneumococcal Vaccination: No Review Of Systems Except As Marked, All Systems Reviewed And Found Negative. ENT: Positive for: Other (lower dental pain ) Physical Exam - Physical Exam Appears: Non-toxic, No Acute Distress Skin: Normal Color, Warm, Dry Head: Atraumatic, Normacephalic Oral Mucosa: Moist Gingiva: No Erythema, No Ulceration, Tender (cracked lower right first premolar ), No Abscess Throat: No Erythema, No Exudate Neck: Normal ROM, Supple Chest: Symmetrical, No Deformity Cardiovascular: Rhythm Regular, No Friction Rub, No Murmur Respiratory: Normal Breath Sounds, No Rales, No Rhonchi, No Wheezing Gastrointestinal/Abdominal: Soft, No Tenderness, Other (healing stapled wound to lower abdomen with no dehiscence ) Back: Normal Inspection, No CVA Tenderness Extremity: Normal ROM, No Swelling Neurological/Psych: Oriented x3, Normal Speech, Normal Motor Gait: Steady ED Course And Treatment O2 Sat by Pulse Oximetry: 96 (on RA) Pulse Ox Interpretation: Normal Medical Decision Making Medical Decision Making: Plan: Urinalysis Amoxicillan 500mg PO Motrin 800mg PO Bacitracin 1ea TOP BP was found to be elevated. The case was discussed with Dr. Rogers (OB[facility]N [facility]) who states that the patient is already being treated for pre-eclampsia and instructs the patient to continue taking the Labetolol 200mg BID. The patient was instructed to continue taking the BP mediations and follow up with the OBGYN clinic tomorrow as scheduled. Disposition - Disposition Referrals: [facility] [Outside] Disposition: HOME/ ROUTINE Disposition Time: 16:10 Condition: STABLE Additional Instructions: FOLLOW UP WITH THE OBGYN TOMORROW AND CONTINUE TAKING YOUR BLOOD PRESSURE MEDICATIONS WITHOUT FAIL. RETURN IF WORSENED. Prescriptions: Acetaminophen [Tylenol] 325 mg PO Q6 PRN #30 tab PRN Reason: Pain, Mild (1-3) Amoxicillin [Amoxil 500 mg Cap] 500 mg PO TID #29 cap Ibuprofen [Motrin Tab] 800 mg PO TID #20 tab Instructions: Contusion (DC), Dental Pain (DC) Forms: [facility] ([employer]) - POA Present On Arrival: None - Clinical Impression Clinical Impression: Dental caries, Back contusion - PA / TURKEY BONER / Resident Statement MD/DO has examined the patient and agrees with the treatment plan. - Scribe Statement The provider has reviewed the documentation as recorded by the Floyd Jeter All medical record entries made by the Floyd were at my direction and personally dictated by me. I have reviewed the chart and agree that the record accurately reflects my personal performance of the history, physical exam, medical decision making, and the department course for this patient. I have also personally directed, reviewed, and agree with the discharge instructions and disposition.
[2018-11-26 15:08] LABS: SQUAMOUS EPITHIAL 1 /hpf (0-5); URINE BILIRUBIN NEGATIVE (NEGATIVE); URINE BLOOD 1+ (NEGATIVE); URINE CLARITY Hazy (Clear); URINE COLOR Yellow (YELLOW); URINE GLUCOSE (UA) NORMAL (Normal); URINE LEUKOCYTE ESTERASE NEG Leu/uL (Negative); URINE PROTEIN 2+ mg/dL (NEGATIVE); URINE UROBILINOGEN NORMAL mg/dL (0.2-1.0)
[2018-11-26] MEDS ORDERED: Bacitracin 500 Units/gm Oint Foilpak UD TOP ONE (16:06)
[2018-11-26 16:07] VITALS: BP 141/90; PULSE 98; RESP 16; TEMP 98.2
[2018-11-26] MEDS ORDERED: Bacitracin 500 Units/gm Oint Foilpak UD ONE (16:14)
[2018-11-26 16:17] VITALS: O2SAT 96
== END 2018-11-26 16:26 | disposition home or self-care (01) ==
LOC: C.ER 12:52
DX: K02.9 Dental caries, unspecified (principal); S30.0XXA Contusion of lower back and pelvis, initial encounter; W01.0XXA Fall on same level from slipping, tripping and stumbling without subsequent striking against object, initial encounter; Y93.E1 Activity, personal bathing and showering